=== PATIENT | female | born 1970 | race Caucasian/White ===

== ENCOUNTER 2017-04-05 04:10 | Emergency (ER) | payer OTHER ==
--- NOTE | ~2017-04-05 | EKG ---
PATIENT: DILAN CHRISTENSEN UNIT #: [id number] Ventricular Rate: 101 BPM Atrial Rate: 101 BPM P-R Interval: 148 ms QRS Duration: 80 ms Q-T Interval: 346 ms QTC Calculation(Bezet): 448 ms P Strang: 45 degrees Calculated R Strang: 76 degrees Calculated T Strang: 48 degrees Diagnosis Line: Sinus tachycardia Diagnosis Line: Otherwise normal ECG Diagnosis Line: No previous ECGs available Diagnosis Line: Confirmed by PILLO CHISHOLM MD ([id number]) on 04/05/2017 Diagnosis Line: 6:28:15 PM INTERPRETING MD: KATHRINE SALTER
--- NOTE | ~2017-04-05 | CR72 ---
[facility] A Service of [facility] RADIOLOGY TEXT RESULTS PATIENT: DILAN CHRISTENSEN LOCATION: [facility] : [birth year] UNIT #: [id number] AGE: [address]: Ramirez Pisano MD SEX: F ORDER DR: [id number] [facility] [address] [place], [place] [address] [id number] E MR#: [id number] Acc #: [id number] NAME: DILAN CHRISTENSEN : 1970 SEX: F STUDY DATE/TIME: 04/05/2017 05:15 UNIT: [facility] ROOM: STUDY DESCRIPTION: CR Chest Single View Portable Attending Physician: Ramirez Pisano M.D. Ordering Physician: Israel Smith M.D. Primary Care Physician: Chelle Boykin M.D. MEDICAL IMAGING REPORT This report is preliminary unless electronic signature is present EXAM Portable chest, 04/05 at 05:15 INDICATION Shortness of air and syncope this morning. History of hypertension. FINDINGS AP portable chest was obtained. No comparison. Lung volumes are low but the lungs are clear. The heart is enlarged. Vascularity normal. No pneumothorax. IMPRESSION Cardiomegaly with low volume inspiration. Lungs clear. Dictated by... Israel Garcia Jr., M.D. THIS IS AN ELECTRONICALLY VERIFIED REPORT Israel Garcia Jr., M.D. at 04/06/2017 5:52 AM GRECIA/mark TD: 04/05/2017 10:40 JOB #: [id number] MEDICAL IMAGING REPORT Page 1 of 1 COPY
--- NOTE | ~2017-04-05 | CT71 ---
[facility] A Service of [facility] RADIOLOGY TEXT RESULTS PATIENT: DILAN CHRISTENSEN LOCATION: [facility] : 66 UNIT #: [id number] AGE: [address]: Ramirez Pisano MD SEX: F ORDER DR: [id number] [address] [id number] [facility]. [place], [place] [address] [id number] E MR#: [id number] Acc #: [id number] NAME: DILAN CHRISTENSEN : 1970 SEX: F STUDY DATE/TIME: 04/05/2017 6:04 UNIT: [facility] ROOM: STUDY DESCRIPTION: CT Head Wo Contrast Attending Physician: Ramirez Pisano M.D. Ordering Physician: Israel Smith M.D. Primary Care Physician: Chelle Boykin M.D. MEDICAL IMAGING REPORT This report is preliminary unless electronic signature is present EXAM CT head without IV contrast COMPARISON None. INDICATION 46-year-old female with syncope after episode of coughing tonight. Patient subsequently fell and hit the back of the head with posterior head laceration. FINDINGS This CT examination was performed with one or more of the following radiation dose reduction techniques: automatic exposure control, adjustment of mA and/or kV according to patient size, and iterative reconstruction. [employer] topogram demonstrates skin ashlee just over the occipital calvarium. There is subcutaneous gas in the left occipital parietal region consistent with recent laceration. No evidence of associated fracture. No suspicious osseous lesions. Mastoid air cells, middle ears and visualized paranasal sinuses are well-aerated. There is possibly a trace air-fluid level versus mucosal thickening in the dependent right maxillary sinus. Minimal calcifications of the cavernous internal carotid arteries bilaterally. Normal cerebral volume. No mass effect or abnormal extraaxial fluid collection. No acute intracranial hemorrhage. There is streak artifact from the inner table of the skull in the posterior fossa, limiting evaluation. No convincing evidence of acute ischemia. IMPRESSION Laceration over the left parietal occipital region without retained foreign body or associated skull fracture. No acute intracranial abnormality. [facility] A Service of [facility] RADIOLOGY TEXT RESULTS PATIENT: DILAN CHRISTENSEN LOCATION: [facility] : 66 UNIT #: [id number] AGE: [address]: Ramirez Pisano MD SEX: F ORDER DR: Dictated by... Lake Little M.D. THIS IS AN ELECTRONICALLY VERIFIED REPORT Lake Little M.D. at 04/08/2017 10:24 PM RACHID/meghann TD: 04/05/2017 10:37 JOB #: [id number] MEDICAL IMAGING REPORT Page 1 of 1 COPY
[~2017-04-05 04:10] MED LIST: CLEOCIN PO
[2017-04-05 05:41] LABS: BASOPHIL% 0.3 % (0-2.5); EOSINOPHIL# 0.8 X10e3 (0-0.7); EOSINOPHIL% 5.6 % (0.0-7.0); HEMATOCRIT 41.3 % (35.0-45.0); HEMOGLOBIN 13.6 gm/dL (12.0-16.0); LYMPHOCYTE# 1.8 X10e3 (1.0-3.5); LYMPHOCYTE% 12.4 % (17.0-45.0); MEAN CELL VOLUME 91.9 FL (83-96); MEAN CORPUSCULAR HEMOGLOBIN 30.3 PG (28-34); MEAN PLATELET VOLUME 8.8 FL (6.5-11.5); MONOCYTE# 0.9 X10e3 (0-1.0); NEUTROPHIL% 75.7 % (40-75); PLATELET COUNT 230 X10e3 (140-420); RED BLOOD COUNT 4.49 X10e (3.90-5.30); RED CELL DISTRIBUTION WIDTH 13.1 % (11.0-15.5); WHITE BLOOD COUNT 14.5 X10e3 (4.0-10.5)
[2017-04-05 05:50] LABS: DIFF IND NO
[2017-04-05 05:59] LABS: PARTIAL THROMBOPLASTIN TIME 23.7 SECONDS (23.5-31.3); PROTHROMBIN TIME (PATIENT) 11.2 SECONDS (10.0-11.7)
[2017-04-05 06:11] LABS: ALBUMIN SERUM 3.3 g/dL (3.5-5.0); BILIRUBIN, DIRECT 0.1 mg/dL (0.0-0.2); BILIRUBIN,INDIRECT 0.3 mg/dL (0.0-0.9); BILIRUBIN,TOTAL 0.4 mg/dL (0.2-2.0); BUN/CREATININE RATIO 29.41; CALCIUM SERUM 8.4 mg/dL (8.4-10.2); CREATININE SERUM 1.7 mg/dL (0.6-1.4); GLOM FILT RATE Estimated 35.1 mL/min (>60); POTASSIUM 4.8 mmol/L (3.5-5.1); PROTEIN TOTAL SERUM 6.8 g/dL (6.0-8.3)
== END 2017-04-05 07:17 | disposition home or self-care (01) ==
LOC: CED 04:10
PROVIDERS: Emergency Medicine
DX: S09.90XA Unspecified injury of head, initial encounter (principal); S01.01XA Laceration without foreign body of scalp, initial encounter; I10 Essential (primary) hypertension; E86.0 Dehydration; E11.65 Type 2 diabetes mellitus with hyperglycemia; Z79.899 Other long term (current) drug therapy; W22.8XXA Striking against or struck by other objects, initial encounter
CPT/HCPCS: 12001; 12002; 36415; 70450; 71010; 80048; 80076; 82947; 84703; 85025; 85610; 85730; 93005; 96361; 96374; 99285; J2405

== ENCOUNTER 2017-04-15 07:11 | Emergency (ER) | payer OTHER ==
[~2017-04-15] VITALS: Ht 165.1 cm; Wt 108.9 kg
== END 2017-04-15 07:55 | disposition home or self-care (01) ==
LOC: CED 07:11
DX: S01.01XD Laceration without foreign body of scalp, subsequent encounter (principal); I10 Essential (primary) hypertension; E11.9 Type 2 diabetes mellitus without complications; Z79.899 Other long term (current) drug therapy; X58.XXXD Exposure to other specified factors, subsequent encounter
CPT/HCPCS: 99281